=== PATIENT | male | born 1970 | race Two or more races ===

== ENCOUNTER 2020-11-02 09:52 | Emergency (ER) | payer OTHER ==
[~2020-11-02] VITALS: Ht 180.3 cm; Wt 76.2 kg
[2020-11-02] MEDS ORDERED: TDAP [DIPH/PERTUSSIS/TET] 0.5 ML VIAL IM ONE (10:28)
[2020-11-02] MEDS ORDERED: IBUPROFEN 600 MG TABLET ONE (10:29)
[2020-11-02] MEDS: IBUPROFEN 600 MG TABLET PO ONE (10:49)
[2020-11-02 10:50] VITALS: BP 134/84
[2020-11-02] MEDS: TDAP [DIPH/PERTUSSIS/TET] 0.5 ML VIAL IM ONE (10:50)
--- NOTE | 2020-11-02 10:52 | NUR ---
WOUND CARE COMPLETED
== END 2020-11-02 10:52 | disposition home or self-care (01) ==
LOC: ER 09:52
DX: S01.01XA Laceration without foreign body of scalp, initial encounter (principal); W22.8XXA Striking against or struck by other objects, initial encounter; Y93.89 Activity, other specified; Y92.89 Other specified places as the place of occurrence of the external cause; Y99.8 Other external cause status
CPT/HCPCS: 90715